=== PATIENT | male | born 1980 | race Two or more races ===

== ENCOUNTER 2023-10-26 22:11 | Emergency (ER) | payer MEDICAID, OTHER ==
[~2023-10-26] VITALS: Ht 182.9 cm; Wt 130.0 kg
[2023-10-26 22:20] VITALS: BP 175/88; PULSE 100; RESP 20; O2SAT 98
== END 2023-10-27 00:27 | disposition home or self-care (01) ==
LOC: EDBD 22:11 → ER 22:11
DX: R07.9 Chest pain, unspecified (principal); F20.9 Schizophrenia, unspecified; F41.9 Anxiety disorder, unspecified
CPT/HCPCS: 93005